=== PATIENT | male | born 1965 | race Caucasian/White ===

== ENCOUNTER 2024-04-03 17:05 | Outpatient (CLI) | payer OTHER, SELFPAY ==
--- OUTSIDE RECORDS SUMMARY | 2024-04-03 17:18 | XMS_ITS | CONTINUITY OF CARE DOCUMENT ---
Author Name juan carlos rangel Address Unknown Organization [facility] Address [address] [place] [address] Phone [phone] Care Team Providers Care Die Cleaner Name Role Phone Mega Vargas MD Unavailable AMMY ALBARADO MD Unavailable AMMY ALBARADO MD Unavailable [phone] VITAL SIGNS Date Observation Value Provider blood pressure, diastolic 80 mm[Hg] Be zacharyy Haider blood pressure, systolic 116 mm[Hg] Ara Maloney SOCIAL HISTORY Date Observation Value Provider smoking status never Joann Maloney FUNCTIONAL STATUS Date Observation Value Provider periodic limb movement index absent (0) Joann Maloney INSURANCE PROVIDERS Payer name Policy type / Coverage type Luis Eduardo red republican ID VERN[employer] PPO [employer] Other [id number]
[2024-04-03 17:38] LABS: Basophils Absolute Auto 0.1 K/mm3 (0.0-0.1); Basophils Percent Auto 0.7 % (0.2-1.2); Eosinophils Absolute Auto 0.1 K/mm3 (0-0.3); Eosinophils Percent Auto 0.6 % (0-4.4); Hematocrit 46.4 % (42.0-52.0); Hemoglobin 15.6 g/dL (14.0-18.0); Immature Granulocyte Absolute 0.09 K/mm3 (0.00-0.031); Immature Granulocyte Percent A 0.7 % (0-0.5); Lymphocytes Absolute Auto 2.52 K/mm3 (0.9-3.2); Lymphocytes Percent Auto 20.8 % (18.3-44.2); Mean Corpuscular HGB Conc 33.6 g/dl (32-36); Mean Corpuscular Hemoglobin 31.3 pg (26-34); Mean Platelet Volume 9.2 fl (7.4-10.4); Monocytes Absolute Auto 1.4 K/mm3 (0.1-0.6); Monocytes Percent Auto 11.6 % (2.6-8.5); Neutrophils Percent Auto 65.6 % (45.5-73.1); Platelet Count Result 267 k/mm3 (150-375); Red Blood Count 4.99 M/mm3 (4.6-6.20); White Blood Count 12.1 K/mm3 (4.5-10.0)
[2024-04-03 17:59] LABS: Alanine Aminotransferase 105 U/L (6-50); Albumin Level 4.3 g/dL (3.5-5.1); Alkaline Phosphatase 77 U/L (38-126); Anion Gap 9 mmol/L (4-12); Aspartate Amino Transferase 44 U/L (17-59); Bilirubin,Total 0.7 mg/dL (0.2-1.3); Blood Urea Nitrogen 14 mg/dL (9-20); Calcium 9.6 mg/dL (8.4-10.2); Carbon Dioxide 29 mmol/L (22-30); Chloride 100 mmol/L (98-107); Estimated Glomerular Filt Rate > 60; Glucose 130 mg/dL (65-110); Lipase 83 U/L (23-300); Potassium 4.6 mmol/L (3.4-5.0); Sodium 138 mmol/L (137-145)
== END 2024-04-03 17:06 | disposition home or self-care (01) ==
LOC: ANHLAB 17:16
PROVIDERS: PCP Internal Medicine; Visit Provider Internal Medicine
DX: R10.9 Unspecified abdominal pain (principal)
CPT/HCPCS: 36415; 80053; 83690; 85025

== ENCOUNTER 2024-04-04 08:19 | Outpatient (CLI) | payer OTHER, SELFPAY ==
--- NOTE | ~2024-04-04 | CT_ITS ---
EXAMINATION: CT abdomen pelvis w con DATE: 04/04/2024 08:49 INDICATION: Abdominal pain. TECHNIQUE: Computed tomography (CT) of the abdomen and pelvis was performed with 100 mL Omnipaque 350 intravenous contrast. Automated exposure control and iterative reconstruction technique were employe d. The dose-length product was 1168.79 mGy-cm. COMPARISON: None. FINDINGS: The visualized portions of lung bases demonstrate mild atelectasis. No pleural effusion. Th e heart size is normal. No pericardial effusion. The liver and spleen are normal. There are changes o f cholecystectomy. The pancreas and adrenal glands are normal. There are cysts in the kidneys measuri ng up to 11 mm on the left. The prostate is mildly enlarged. There is a left inguinal hernia containi ng fat. There is diverticulosis of the colon without evidence of diverticulitis. The appendix is norm al. There is stranding around fat in the anterior peritoneum deep to the umbilicus near the sigmoid c olon, consistent with fat necrosis. There are no pathologically enlarged lymph nodes. There is no destini e intraperitoneal fluid. There is mild thoracic and lumbar spondylosis. IMPRESSION: 1. Stranding around fat in the anterior peritoneum, consistent with fat necrosis. Reviewed, dictated and finalized at location [facility]. [facility] IMPRESSION: 1. Stranding around fat in the anterior peritoneum, consistent with fat necrosi s.
[2024-04-04 08:49] LABS: Estimated Glomerular Filt Rate > 60
--- OUTSIDE RECORDS SUMMARY | 2024-04-04 08:50 | XMS_ITS | Continuity of Care Document ---
Author Organization [place] [facility] [place] Address [address] [place] [address] Care Team Providers Care Process Manufacturing Engineer Name Role Phone AMMY POON Primary Care Provider Assessment Encounter Date Assessment Date Assessment LastModified by Organization Details LastModified Time 04/03/2024 04/03/[address] abdomen and pelvis as soon as possible Not available 04/03/2024 23:43:58 Plan of Treatment Reminders Order Date Submit Date Provider Last Modified By Organization Details Last Modified Time Details Appointments ANY 15 2024 02:15P M Ammy oPon MD Not available Not available Not available Lab CBC w/ auto diff 2024 025 [facility], [address], [place], [address], 04/04/2024 07:26:26 CMP, serum or plasma 2024 025 [facility], [address], [place], [address], 04/04/2024 08:42:41 lipase, serum or plasma 2024 025 [facility], [address], [place], [address], 04/03/2024 18:05:41 Referral None recorded. Procedures None recorded. Surgeries None recorded. Imaging CT, abdomen + pelvis, w/ contrast - Authoriza tion not requiredN o pre-certi fication is required for this order 2024 025 [facility] [address], [place], [address], 04/04/2024 09:49:26 Medication Orders None recorded. Patient TargetsNo targets recorded. Patient Instructions Encounter Date Encounter Id Patient Instructions Last Modified By Organization Details Last Modified Time 04/03/2024 [id number] A healthy lifestyle: care instructions Not available 04/03/2024 18:05:41 Reason for Referral None Reported. Problems Name Problem SNOMED Code Status Onset Date Resolution Date Notes Provider Name and Address Organization Details Recorded Time Essential hypertension 86724391 Active 2023 ANDREA [place], [place] - [facility] 16:39:34 Screening for malignant neoplasm of prostate Active 2023 Maira Sims MA null, [place] - [facility] 16:39:35 Anxiety 85269966 Active 2023 Ammy Poon MD Attn: Manish paez,[address] [place], [address], [place] - [facility] 4 18:05:19 Hyperlipidemi a 68738692 Active 2023 Ammy Poon MD Attn: Manish paez,[address] [place], [address], [place] [facility] 4 18:05:21 Peripheral venous insufficiency 48705220 Active 2023 Ammy Poon MD Attn: Manish paez,[address] [place], [address], [place] [facility] 4 18:05:22 Type 2 diabetes mellitus 36326112 Active 2024 Ammy Poon MD Attn: Manish paez,[address] [place], [address], [place] [facility] 5 22:52:19 SARS-CoV-2 vaccination declined 9579709571 Active 2024 Ammy Poon MD Attn: Manish paez,[address], [place], [address], [facility] - [facility] 22:53:30 Pneumococcal vaccination declined 508611526 Active 2024 Ammy Poon MD Attn: Manish paez,[address], [place], [address], [facility] - [facility] 22:53:31 Influenza vaccination declined 533468637 Active 2024 Ammy Poon MD Attn: Manish paez,[address], [place], [address], [facility] - [facility] 22:53:32 Abdominal pain 96595156 Active 2024 Maira Sims MA [facility], [place] - [facility] 17:29:58 Problem Notes None recorded. Procedures Surgical History Date Name Laterality Status Provider Name and Address Organization Details Recorded Time 02/22/19 07 Cholecystectomy completed Radha Mcneill MA [facility] 06/07/2023 16:15:56 Imaging Results None recorded. Procedure Notes None recorded. Medical Equipment None Reported. Allergies No known drug allergies Medications Name Sig Start Date Stop Date Status Note LastModified by Organization Details LastModified Time metformin 500 mg tablet TAKE 1 TABLET BY MOUTH EVERY DAY active Not Available Not Available No t Available atorvasta tin 10 mg tablet TAKE 1 TABLET BY MOUTH EVERY DAY active Not Available Not Available No t Available hydrocodo ne 5 mg-acetam inophen 325 mg tablet TAKE 1 TO 2 TABLETS BY MOUTH EVERY 6 HOURS NEEDED FOR PAIN active Not Available Not Available No t Available lisinopri l 20 mg tablet TAKE 1 TABLET BY MOUTH EVERY DAY 09/14 completed see pt case 07/12/23 Not Available Not Available Not Available Zithromax Z-Vladimir 250 mg tablet Take 1 dose pk by oral route as directed . 2023 active Not Available Not Available Not Avai lable alprazola m 0.5 mg tablet Take 1 tablet as needed by oral route. 06/18 completed Not Available Not Available Not Available lorazepam 0.5 mg tablet TAKE 1 TABLET BY MOUTH EVERY DAY NEEDED 10/20 completed changed to 1mg by Dr Poon at visit 10/21/23. Not Available Not Available Not Available lorazepam 1 mg tablet TAKE 1 TABLET BY MOUTH THREE TIMES DAILY active Not Available Not Available No t Available lisinopri l 40 mg tablet TAKE 1 TABLET BY MOUTH EVERY DAY active Not Available Not Available No t Available Vitals Date Recorded Body height Body mass index (BMI) Body weight Heart rate Oxygen saturation Oxygen saturation in Arterial blood by Pulse oximetry Systolic blood pressure Diastolic blood pressure Provider Name and Address Organization Details Last Updated DateTime 5 182.88 cm 34.9 kg/m2 500583. 04 g 105 /min 98 % 98 % 132 mm[Hg] 68 mm[Hg] Carlotta Bacon [place] [facility] 5 16:25:04 Social History Question Answer Notes LastModified by Organizat ion Details LastModified Time Tobacco Smoking Status Never Smoker Radha Mcneill MA [facility], [place] [facility] 06/07/2023 16:16:15 Do You Have An Advance Directive? No Information not available 10/21/2023 What Is Your Level Of Alcohol Consumption? Occasional Information not available 06/07/2023 Are You Blind Or Do You Have Difficulty Seeing? No Information not available 06/07/2023 What Is Your Level Of Caffeine Consumption? Occasional Information not available 10/21/2023 In The 14 Days Before Symptom Onset, Have You Had Close Contact With A Laboratory-confir med COVID-19 While That Case Was Ill? No Information not available 10/21/2023 In The 14 Days Before Symptom Onset, Have You Had Close Contact With A Person Who Is Under Investigation For COVID-19 While That Person Was Ill? No Information not available 10/21/2023 Have You Been To An Area Known To Be High Risk For COVID-19? No Information not available 10/21/2023 Are You Currently Employed? Yes Information not available 10/21/2023 Are You Deaf Or Do You Have Serious Difficulty Hearing? No Information not available 06/07/2023 What Type Of Diet Are You Following? 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 No Information not available 10/21/2023 What Was The Date Of Your Most Recent Tobacco Screening? 04/03/2024 Information not available 04/03/2024 What Is Your Relationship Status? Information not available 06/07/2023 Do You Use Your Seat Belt Or Car Seat Routinely? Yes Information not available 10/21/2023 Do You Have Smoke And Carbon Monoxide Detectors In Your Home? Yes Information not available 10/21/2023 Do You Feel Stressed (tense, Restless, Nervous, Or Anxious, Or Unable To Sleep At Night)? [id number] Information not available 06/07/2023 Do You Use Any Illicit Or Recreational Drugs? No Information not available 10/21/2023 Do You Use Sunscreen Routinely? Yes Information not available 10/21/2023 Has Tobacco Cessation Counseling Been Provided? No Information not available 10/21/2023 Do You Or Have You Ever Used Any Other Forms Of Tobacco Or Nicotine? No Information not available 10/21/2023 Sex: Male Functional Status Question Answer Note LastModified by Organization D etails LastModified Time Are you able to care for yourself? Yes Information n ot available 06/07/2023 What is your exercise level? None Information not available 10/21/2023 Mental Status None recorded. Family History Relationship Description Onset Age of this Age Resolved Age Notes LastModified by Organization Details LastModified Time Mother Hypertensive disorder [email or web address] Not available 2023 16:16:05 Notes:No new family history, me/rma Medical History Condition Response High Blood Pressure Y Past Encounters Encounter ID Performer Location Encounter Start Date Encounter Closed Date Diagnosis/Indication Diagnosis SNOMED-CT Code Diagnosis ICD10 Code Diagnosis Note [id number] [facility] - [place] [address] [place] [address] 04/03/2024 16:06:47 04/03/2024 17:38:10 Body mass index 30+ - obesity 705301537 Z68.34 Obesity 863155518 E66.9 Abdominal pain 48280108 R10.9 Health Concerns Section Related Observation LastModified by Organization Detai ls LastModified Time None Recorded Concern Status LastModified by Organization Details LastModified Time None Recorded Payers Encounter Date Sequence Insurance Name Policy Number Policy Martinez Covered Member ID Martinez Member ID Guarantor Name 04/03/2024 1 [employer] [id number] Donavon Lalajosegocharlie [id number] Saw Brandie Notes Date Note Type Note Provider Name and Address Organization Details Recorded Time 04/03/2024 text/html he has been having abdominal pain for a few days feels a knot right next to his umbilicus no clear-cut fever chills pain was moderate to severe maybe a little bit better today but it is not going away does not seem to radiate had a bowel movement last night passing some flatus today Ammy Poon MD Attn: [address] [place], [address], [place] - [facility] 04/03/2024 23:44:19
--- OUTSIDE RECORDS SUMMARY | 2024-04-04 08:50 | XMS_ITS | Data Portability ---
Author Organization [place] [facility], Main Office Address [address] [place] [address] Assessment Encounter Date Assessment Date Assessment LastModified by Organization Details LastModified Time 07/07/2022 07/07/2022 Continue current therapy exam unremarkable I have offered chest x-ray and switching his ASMITA-inhibitor but he thinks it might be allergies will wait 1 month and he will call back if his cough is not better with regards the abdominal pain and the exam is unremarkable he wants to monitor that as well obtain blood work see me in 4 months continue current therapy [email or web address] Not available 07/07/2022 17:38:14 Plan of Treatment Reminders Order Date Submit Date Provider Last Modified By Organization Details Last Modified Time Details Appointments None recorded . Lab PSA, total, serum or plasma 023 07/08/19 WHIT Ricardo, 2022 Marielos Carrion, [address], [place], [address], 3 11:18:19 CBC w/ auto diff 023 07/08/19 WHIT Ricardo, 2022 Marielos Carrion, [address], [place], [address], 3 10:32:08 TSH + free T4, serum 023 07/08/19 WHIT Ricardo, 2022 Marielos Carrion, [address], [place], [address], 3 11:18:18 T3, free, serum or plasma 023 07/08/19 WHIT Ricardo, 2022 Marielos Carrion, [address], [place], [address], 3 11:18:19 lipid panel, serum 023 07/08/19 MOMENCE [facility], 2022 Marielos Carrion, [address], [place], [address], 3 11:18:19 CMP, serum or plasma 023 07/08/19 23 MOMENCE [facility], 2022 Marielos Carrion, [address], [place], [address], 3 11:18:18 Referral None recorded . Procedures None recorded . Surgeries None recorded . Imaging None recorded . Medication Orders None recorded . Patient TargetsNo targets recorded. Patient InstructionsNo instructions recorded. Reason for Referral None Reported. Results Created Date Observation Date Name Description Value Unit Range Abnormal Flag Note LastModifiedBy Organization Detail LastModifiedTime 04/10/19 22 04/10/2021 PSA SCREE N PSA medicare screen 0.55 NG/mL 0.00-4 .00 Not Available [facility] (Lab) [address] [place], [address], 04/11/2021 00:08:43 04/10/19 22 04/10/2021 COMPR EHENS ALPHONSO METAB OLIC PANEL sodium 136 mmol/ L 137-14 5 low Not Available [facility] (Lab) [address] [place], [address], 04/10/2021 23:03:41 04/10/19 22 04/10/2021 COMPR EHENS ALPHONSO METAB OLIC PANEL potassium 4.5 mmol/ L 3.5-5. 1 Not Available [facility] (Lab) [address] [place], [address], 04/10/2021 23:03:41 04/10/19 22 04/10/2021 COMPR EHENS ALPHONSO METAB OLIC PANEL chloride 103 mmol/ L 98-107 Not Available [facility] (Lab) [address] [place], [address], 04/10/2021 23:03:41 04/10/19 22 04/10/2021 COMPR EHENS ALPHONSO METAB OLIC PANEL carbon dioxide 31 mmol/ L 22-30 high Not Available [facility] (Lab) [address] [place], [address], 04/10/2021 23:03:41 04/10/19 22 04/10/2021 COMPR EHENS ALPHONSO METAB OLIC PANEL agap 6.5 mmol/ L 14-22 low Not Available [facility] (Lab) [address] [place], [address], 04/10/2021 23:03:41 04/10/19 22 04/10/2021 COMPR EHENS ALPHONSO METAB OLIC PANEL glucose 134 mg/dL 70-99 high Not Available [facility] (Lab) [address] [place], [address], 04/10/2021 23:03:41 04/10/19 22 04/10/2021 COMPR EHENS ALPHONSO METAB OLIC PANEL BUN 19 mg/dL 8-19 Not Available [facility] (Lab) [address] [place], [address], 04/10/2021 23:03:41 04/10/19 22 04/10/2021 COMPR EHENS ALPHONSO METAB OLIC PANEL creatinine 0.95 mg/dL 0.66-1 .25 Not Available [facility] (Lab) [address] [place], [address], 04/10/2021 23:03:41 04/10/19 22 04/10/2021 COMPR EHENS ALPHONSO METAB OLIC PANEL GFR >60 Refer ence Range : [place] ge GFR Healt hy Adult : >60 mL/mi n/1.7 3 m2 Chron ic Kidne y Disea se: 15-60 mL/mi n/1.7 3 m2 Kidne y Failu re: <15/m L/min /1.73 m2 www.n iddk. nih.g ov The MDRD study equat ion has not been valid ated in child chong <18 years of age; pregn ant women ; the elder ly >85 years of age; or in some racia l or ethni c subgr oups, such as Hisdequan nics. Outsi de the valid ated azael eters , estim ated GFR is less accur ate, requi ring clini matthew judgm ent on a case- by-ca se basis . Clini matthew inter preta tion for other races and ages must be made by the clini genoveva. The MDRD study equat ion has not been valid ated for the evalu ation of serum creat inine relat ed to nutri srikanth l statu s or medic ation usage . For perso ns <18 years of age, a pedia tric GFR calcu lator is avail able on the [facility] websi te: https ://fabián w.hoang esposito.o rg/pr ofess ional s/kdo qi/gf r_cal culat or Not Available [facility] (Lab) [address] [place], [address], 04/10/2021 23:03:41 04/10/19 22 04/10/2021 COMPR EHENS ALPHONSO METAB OLIC PANEL alkaline phosphatase 69 U/L 38-126 Not Available [facility] (Lab) [address] [place], [address], 04/10/2021 23:03:41 04/10/19 22 04/10/2021 COMPR EHENS ALPHONSO METAB OLIC PANEL alanine aminotransfe rase 26 U/L 0-50 Not Available [facility] (Lab) [address] [place], [address], 04/10/2021 23:03:41 04/10/19 22 04/10/2021 COMPR EHENS ALPHONSO METAB OLIC PANEL aspartate aminotransfe rase 23 U/L 15-46 Not Available [facility] (Lab) [address] [place], [address], 04/10/2021 23:03:41 04/10/19 22 04/10/2021 COMPR EHENS ALPHONSO METAB OLIC PANEL bilirubin, total 0.30 mg/dL 0.20-1 .30 Not Available [facility] (Lab) [address] [place], [address], 04/10/2021 23:03:41 04/10/19 22 04/10/2021 COMPR EHENS ALPHONSO METAB OLIC PANEL calcium 9.2 mg/dL 8.4-10 .2 Not Available [facility] (Lab) [address] [place], [address], 04/10/2021 23:03:41 04/10/19 22 04/10/2021 COMPR EHENS ALPHONSO METAB OLIC PANEL total protein 6.5 g/dL 6.3-8. 2 Not Available [facility] (Lab) [address] [place], [address], 04/10/2021 23:03:41 04/10/19 22 04/10/2021 COMPR EHENS ALPHONSO METAB OLIC PANEL albumin 3.9 g/dL 3.4-5. 0 Not Available [facility] (Lab) [address] [place], [address], 04/10/2021 23:03:41 04/10/19 22 04/10/2021 COMPR EHENS ALPHONSO METAB OLIC PANEL globulin 2.6 g/dL 2.6-4. 2 Not Available [facility] (Lab) [address] [facility] [place], [address], 04/10/2021 23:03:41 04/10/19 22 04/10/2021 COMPR EHENS ALPHONSO METAB OLIC PANEL A/G ratio 1.5 ratio 1.0-2. 0 Not Available [facility] (Lab) [address] [place], [address], 04/10/2021 23:03:41 04/10/19 22 04/10/2021 LIPID PANEL cholesterol 188 mg/dL 140-19 9 NIH MARINA NSUS RECOM MENDA TION FOR MECHE STERO L: ADULT CHILD LOW RISK: <200 <170 BORDE RLINE : <200- 239 ----- HIGH RISK: >240 >200 Not Available [facility] (Lab) [address] [place], [address], 04/10/2021 23:03:35 04/10/19 22 04/10/2021 LIPID PANEL triglyceride s 77 mg/dL 0-150 NIH MARINA NSUS REPOR T RECOM MENDA TION FOR TRIGL YCERI MARIIA: ADULT CHILD LOW RISK: <150 ----- BODER LINE: 150-1 99 ----- HIGH RISK: >200 ----- Not Available [facility] (Lab) [address] [place], [address], 04/10/2021 23:03:35 04/10/19 22 04/10/2021 LIPID PANEL HDL cholesterol 55 mg/dL 40- Not Available [facility] (Lab) [address] [place], [address], 04/10/2021 23:03:35 04/10/19 22 04/10/2021 LIPID PANEL LDL cholesterol, calculated 118 mg/dL 0-130 NIH MARINA NSUS REPOR T RECOM MENDA TIONS FOR LDL: ADULT CHILD LOW RISK <130 <110 (OPTI MAL LDL) <100 ----- BORDE RLINE : 130-1 59 ----- HIGH RISK: >160 >130 A TRIGL YCERI DE RESUL T >400 INVAL IDATE S THE CALCU LATIO N FOR LDL FRACT IONAT ION - THE LDL RESUL T WILL NOT BE REPOR FRANCINE. Not Available [facility] (Lab) [address] [place], [address], 04/10/2021 23:03:35 04/10/19 22 04/10/2021 CBC/C OMPLE TE BLD COUNT W/DIF F white blood cells 9.1 x10'3 /uL 4.2-10 .8 Not Available [facility] (Lab) [address] [place], [address], 04/10/2021 22:36:11 04/10/19 22 04/10/2021 CBC/C OMPLE TE BLD COUNT W/DIF F red blood cells 4.88 x10'6 /uL 4.10-5 .80 Not Available [facility] (Lab) [address] [place], [address], 04/10/2021 22:36:11 04/10/19 22 04/10/2021 CBC/C OMPLE TE BLD COUNT W/DIF F hemoglobin 14.6 g/dL 13.2-1 7.0 Not Available [facility] (Lab) [address] [place], [address], 04/10/2021 22:36:11 04/10/19 22 04/10/2021 CBC/C OMPLE TE BLD COUNT W/DIF F hematocrit 44.8 % 39.3-5 0.0 Not Available [facility] (Lab) [address] [facility] [place], [address], 04/10/2021 22:36:11 04/10/19 22 04/10/2021 CBC/C OMPLE TE BLD COUNT W/DIF F mean red cell volume 91.8 fL 80.0-9 7.0 Not Available [facility] (Lab) [address] [place], [address], 04/10/2021 22:36:11 04/10/19 22 04/10/2021 CBC/C OMPLE TE BLD COUNT W/DIF F mean red cell hemoglobin 29.9 pg 27.0-3 3.0 Not Available [facility] (Lab) [address] [place], [address], 04/10/2021 22:36:11 04/10/19 22 04/10/2021 CBC/C OMPLE TE BLD COUNT W/DIF F mean RBC HGB concentratio n 32.6 g/dL 31.0-3 6.0 Not Available [facility] (Lab) [address] [place], [address], 04/10/2021 22:36:11 04/10/19 22 04/10/2021 CBC/C OMPLE TE BLD COUNT W/DIF F red cell distribution width 13.5 % 11.8-1 5.5 Not Available [facility] (Lab) [address] [place], [address], 04/10/2021 22:36:11 04/10/19 22 04/10/2021 CBC/C OMPLE TE BLD COUNT W/DIF F platelets 234 x10'3 /uL 150-40 0 Not Available [facility] (Lab) [address] [place], [address], 04/10/2021 22:36:11 04/10/19 22 04/10/2021 CBC/C OMPLE TE BLD COUNT W/DIF F mean platelet volume 9.9 fL 9.0-12 .4 Not Available [facility] (Lab) [address] [place], [address], 04/10/2021 22:36:11 04/10/19 22 04/10/2021 CBC/C OMPLE TE BLD COUNT W/DIF F neutrophils 53.6 % 39.0-7 2.0 Not Available [facility] (Lab) [address] [place], [address], 04/10/2021 22:36:11 04/10/19 22 04/10/2021 CBC/C OMPLE TE BLD COUNT W/DIF F lymphocytes 31.0 % 16.0-4 7.0 Not Available [facility] (Lab) [address] [place], [address], 04/10/2021 22:36:11 04/10/19 22 04/10/2021 CBC/C OMPLE TE BLD COUNT W/DIF F monocytes 11.2 % 5.0-12 .0 Not Available [facility] (Lab) [address] [place], [address], 04/10/2021 22:36:11 04/10/19 22 04/10/2021 CBC/C OMPLE TE BLD COUNT W/DIF F eosinophils 2.5 % 1.0-7. 0 Not Available [facility] (Lab) [address] [place], [address], 04/10/2021 22:36:11 04/10/19 22 04/10/2021 CBC/C OMPLE TE BLD COUNT W/DIF F basophils 1.0 % 0.0-2. 0 Not Available [facility] (Lab) [address] [place], [address], 04/10/2021 22:36:11 04/10/19 22 04/10/2021 CBC/C OMPLE TE BLD COUNT W/DIF F immature granulocytes 0.7 % 0.00-0 .50 high Not Available [facility] (Lab) [address] [place], [address], 04/10/2021 22:36:11 04/10/19 22 04/10/2021 CBC/C OMPLE TE BLD COUNT W/DIF F neutrophils, absolute count 4.85 x10'3 /uL 1.5-8. 0 Not Available [facility] (Lab) [address] [place], [address], 04/10/2021 22:36:11 04/10/19 22 04/10/2021 CBC/C OMPLE TE BLD COUNT W/DIF F lymphocytes, absolute count 2.81 x10'3 /uL 1.07-3 .43 Not Available [facility] (Lab) [address] [place], [address], 04/10/2021 22:36:11 04/10/19 22 04/10/2021 CBC/C OMPLE TE BLD COUNT W/DIF F monocytes, absolute count 1.01 x10'3 /uL 0.29-0 .99 high Not Available [facility] (Lab) [address] [place], [address], 04/10/2021 22:36:11 04/10/19 22 04/10/2021 CBC/C OMPLE TE BLD COUNT W/DIF F eosinophils, absolute count 0.23 x10'3 /uL 0.02-0 .53 Not Available [facility] (Lab) [address] [place], [address], 04/10/2021 22:36:11 04/10/19 22 04/10/2021 CBC/C OMPLE TE BLD COUNT W/DIF F basophils, absolute count 0.09 x10'3 /uL 0.01-0 .08 high Not Available [facility] (Lab) [address] [place], [address], 04/10/2021 22:36:11 04/10/19 22 04/10/2021 CBC/C OMPLE TE BLD COUNT W/DIF F immature granulocytes ,absolute 0.06 x10'3 /uL 0.00-0 .05 high Not Available [facility] (Lab) [address] [place], [address], 04/10/2021 22:36:11 04/10/19 22 04/10/2021 CBC/C OMPLE TE BLD COUNT W/DIF F nucleated red blood cells 0.0 % -0 Not Available [facility] (Lab) [address] [place], [address], 04/10/2021 22:36:11 04/10/19 22 04/10/2021 CBC/C OMPLE TE BLD COUNT W/DIF F NRBC# 0.00 x10'3 /uL Not Available [facility] (Lab) [address] [place], [address], 04/10/2021 22:36:11 Result Notes None recorded. Problems Name Problem SNOMED Code Status Onset Date Resolution Date Notes Provider Name and Address Organization Details Recorded Time Celluliti s of right ankle 76022874437 227504 Completed 202010/31/2020 Not Available [facility] 3 14:47:48 Open wound of right ankle 77171433920 978027 Active 2020 Not Available [facility] 3 14:47:48 Open wound of right lower leg 68788868254 203740 Active 2020 Not Available [facility] 3 14:47:48 Benign essential hypertens ion 1444120 Active Not Available [facility] 3 14:47:48 Anxiety state 083093522 Active Not Available [facility] 3 14:47:48 Pain in scrotum Completed Not Available [facility] 3 14:47:49 Venous insuffici ency of leg 717926516 Active 2021 Not Available [facility] 3 14:47:49 Screening for malignant neoplasm of prostate Active 2021 Not Available [facility] 3 14:47:49 Hyperlipi demia 19059429 Active 2017 Not Available [facility] 3 14:47:49 Sebaceous cyst of skin 177919225 Active 2021 Not Available [facility] 3 14:47:49 Upper respirato ry infection 08390087 Active 2022 RANJITH Cavazos, [facility] [employer] [facility] 3 17:20:25 Cough 68461165 Active 2022 RANJITH Cavazos, [facility] 3 17:20:50 Problem Notes None recorded. Procedures Surgical History Date Name Laterality Status Provider Name and Address Organization Details Recorded Time 08/19/19 Colonoscopy completed Not Available [facility] 04/23/19 14:44:56 Cholecystectomy completed Not Available [facility] 04/22/2022 14:44:56 Imaging Results None recorded. Procedure Notes None recorded. Medical Equipment None Reported. Allergies No known drug allergies Medications Name Sig Start Date Stop Date Status Note LastModified by Organization Details LastModified Time amoxicill in 500 mg capsule Take 1 capsule every 8 hours by oral route for 7 days. active Not Available Not Available No t Available clindamyc in HCl 300 mg capsule Take 1 capsule 3 times a day by oral route for 7 days. 07/07 completed Not Available Not Available Not Available azithromy leonard 250 mg tablet TAKE 2 TABLETS BY MOUTH FOR 1 DAY THEN TAKE 1 TABLET BY MOUTH DAILY FOR 4 DAYS active Not Available Not Available No t Available tizanidin e 4 mg tablet Take 1 tablet every day by oral route at bedtime. active Not Available Not Available No t Available hydrocodo ne 5 mg-acetam inophen 325 mg tablet TAKE 1 TO 2 TABLETS BY MOUTH EVERY 6 HOURS NEEDED FOR PAIN 07/07 completed Not Available Not Available Not Available lisinopri l 20 mg tablet TAKE 1 TABLET BY MOUTH DAILY 2022 active Not Available Not Available Not Avai lable penicilli n V potassium 500 mg tablet TK 1 T PO Q 6 H TAT 05/19 completed Not Available Not Available Not Available phentermi ne 37.5 mg tablet Take 1 tablet every day by oral route. 09/19 completed pt never started Not Available Not Available Not Available ciproflox acin 500 mg tablet 01/02 completed Not Available Not Available Not Available aspirin 81 mg tablet,de layed release Take 1 tablet every day by oral route. 09/12 completed Not Available Not Available Not Available alprazola m 0.5 mg tablet TK 1 T PO D 01/03 completed changed to Lorazepa m Not Available Not Available Not Available cephalexi n 500 mg capsule 01/02 completed Not Available Not Available Not Available ranitidin e 150 mg tablet Take 1 tablet every day by oral route. 08/23 completed Not Available Not Available Not Available lisinopri l 10 mg tablet TAKE 1 TABLET BY MOUTH EVERY DAY 08/07 completed Not Available Not Available Not Available omeprazol e 20 mg capsule,d elayed release Take 1 capsule every day by oral route. 2020 active Not Available Not Available Not Avai lable hydrocodo ne 5 mg-acetam inophen 500 mg tablet TK ONE T PO Q 6 H PRN P 09/12 completed Not Available Not Available Not Available lorazepam 1 mg tablet Take 0.5 tablets every day by oral route. active Not Available Not Available No t Available levofloxa leonard 500 mg tablet TK 1 T PO QD FOR 10 DAYS 02/24 completed Not Available Not Available Not Available doxycycli ne hyclate 100 mg tablet 01/02 completed Not Available Not Available Not Available diazepam 5 mg tablet TK 1 T PO 1 HOUR BEFORE APPOINTM ENT 04/11 completed Not Available Not Available Not Available famotidin e OTC QD 01/02 completed Not Available Not Available Not Available Suprep Bowel Prep Kit 17.5 gram-3.13 gram-1.6 gram oral solution TK UTD 09/15 completed Not Available Not Available Not Available Vitals Date Recorded Body mass index (BMI) Body mass index (BMI) Body mass index (BMI) Body height Body height Body height Body height Oxygen saturation Oxygen saturation in Arterial blood by Pulse oximetry Heart rate Heart rate Heart rate Heart rate Respiratory rate Body temperature Body temperature Body temperature Body weight Body weight Body weight Systolic blood pressure Diastolic blood pressure Systolic blood pressure Diastolic blood pressure Systolic blood pressure Diastolic blood pressure Systolic blood pressure Diastolic blood pressure Provider Name and Address Organization Details Last Updated DateTime 3 36.4 kg/m2 36.8 kg/m2 36.9 kg/m2 185.42 cm 185.42 cm 185.42 cm 185.42 cm 97 % 97 % 76 /min 72 /min 78 /min 72 /min 18 /min 97.7 [degF] 97.7 [degF] 96.1 [degF] 213856. 49 g 124089. 27 g 365155. 86 g 141 mm[Hg] 80 mm[Hg] 130 mm[Hg] 74 mm[Hg] 118 mm[Hg] 68 mm[Hg] 120 mm[Hg] 70 mm[Hg] Not Available [facility] 3 14:46:34 Date Recorded Body height Body mass index (BMI) Body weight Body temperature Heart rate Oxygen saturation Oxygen saturation in Arterial blood by Pulse oximetry Systolic blood pressure Diastolic blood pressure Provider Name and Address Organization Details Last Updated DateTime 3 185.42 cm 35.6 kg/m2 852312. 94 g 98 [degF] 74 /min 98 % 98 % 124 mm[Hg] 78 mm[Hg] Michelle Lam RN [facility] 15:40:22 Social History Question Answer Notes LastModified by Organization Details LastModified Time Tobacco Smoking Status Never Smoker MARISSA Gaona null, [facility] [address] 07/07/2022 15:28:00 Do You Have An Advance Directive? No [id number] Information not available 04/22/2022 What Is Your Level Of Alcohol Consumption? Moderate [id number] Information not available 04/22/2022 Do You Wear A Helmet When Biking? Yes Information not available 07/07/2022 Are You Blind Or Do You Have Difficulty Seeing? No Information not available 07/07/2022 What Is Your Level Of Caffeine Consumption? Occasional [id number] Information not available 04/22/2022 How Much Tobacco Do You Chew? None [id number] Information not available 04/22/2022 In The 14 Days Before Symptom Onset, Have You Had Close Contact With A Laboratory-confi rmed COVID-19 While That Case Was Ill? No Information not available 07/07/2022 In The 14 Days Before Symptom Onset, Have You Had Close Contact With A Person Who Is Under Investigation For COVID-19 While That Person Was Ill? No Information not available 07/07/2022 Are You Currently Employed? Yes [email or web address] Information not available 07/07/2022 Are You Deaf Or Do You Have Serious Difficulty Hearing? No Information not available 07/07/2022 What Type Of Diet Are You Following? REGULAR [id number] Information not available 04/22/2022 Which Illicit Or Recreational Drugs Have You Used? None Information not available 07/07/2022 Do You Or Have You Ever Used E-cigarettes Or Vape? Never Used Electronic Cigarettes Information not available 07/07/2022 What Is The Highest Grade Or Level Of School You Have Completed Or The Highest Degree You Have Received? 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 No Information not available 07/07/2022 What Is The Fluoride Status Of Your Home? Unknown Information not available 07/07/2022 Do You Use Insect Repellent Routinely? No Information not available 07/07/2022 Where Do You Live? [facility] Information not available 07/07/2022 Do You Have A Medical Power Of Plate Stacker Hand? No Information not available 07/07/2022 What Was The Date Of Your Most Recent Tobacco Screening? 07/07/2022 Information not available 07/07/2022 Have You Ever Been Counseled For Unhealthy Alcohol Use? No Information not available 07/07/2022 Do You Have Any Pets? Yes Information not available 07/07/2022 What Is Your Relationship Status? [id number] Information not available 04/22/2022 Do You Use Your Seat Belt Or Car Seat Routinely? Yes Information not available 07/07/2022 Do You Have Smoke And Carbon Monoxide Detectors In Your Home? Yes Information not available 07/07/2022 Are You Passively Exposed To Smoke? No Information not available 07/07/2022 Do You Or Have You Ever Used Smokeless Tobacco? Never Used Smokeless Tobacco [id number] Information not available 04/22/2022 Are There Any Smokers In Your House? No Information not available 07/07/2022 How Much Tobacco Do You Smoke? No [id number] Information not available 04/22/2022 What Types Of Sporting Activities Do You Participate In? None Information not available 07/07/2022 Do You Feel Stressed (tense, Restless, Nervous, Or Anxious, Or Unable To Sleep At Night)? [id number] Information not available 07/07/2022 Do You Use Any Illicit Or Recreational Drugs? No Information not available 07/07/2022 Do You Use Sunscreen Routinely? No Information not available 07/07/2022 Has Tobacco Cessation Counseling Been Provided? No Not Needed-ne francoise Smoked Information not available 07/07/2022 How Many Years Have You Smoked Tobacco? 0 Information not available 07/07/2022 Have You Recently Traveled Abroad? No Information not available 07/07/2022 Do You Have Any Dietary Restrictions? No Information not available 07/07/2022 Do You Or Have You Ever Used Any Other Forms Of Tobacco Or Nicotine? No Information not available 07/07/2022 Sex: Male Functional Status Question Answer Note LastModified by Organizat ion Details LastModified Time Do you have difficulty walking or climbing stairs? No Information not available 07/07/2022 Do you have transportation difficulties? No Information not available 07/07/2022 Are you able to walk? YESWOREST Information not available 07/07/2022 Do you have difficulty doing errands alone? No Information not available 07/07/2022 Are you able to care for yourself? Yes Information n ot available 07/07/2022 Do you have difficulty dressing or bathing? No Information not available 07/07/2022 What is your exercise level? Occasional [id number] Information not available 04/22/2022 Mental Status Question Answer Note LastModified by Organization D etails LastModified Time Do you have difficulty concentrating, remembering or making decisions? No Information no t available 07/07/2022 Family History Relationship Description Onset Age of this Age Resolved Age Notes LastModified by Organization Details LastModified Time Mother Hypertensive disorder [id number] Not available 04/22/2022 14:44:58 Mother Anxiety disorder [id number] Not available 04/22/2022 14:44:58 Mother Lichen sclerosus et atrophicus cyahl Not available 07/07 15:27:59 Father Malignant tumor of lung cyahl Not available 2022 15:27:59 Father Osteoporosis cyahl Not availab le 07/07/2022 15:27:59 Father Benign prostatic hyperplasia cyahl Not available 06/22 15:27:59 Father Hypertensive disorder [id number] Not available 04/22/2022 14:44:58 Medical History Condition Response BLINDNESS N NERVE DISEASE N RHEUMATIC FEVER N BLADDER PROBLEMS N KIDNEY STONES N MRSA N OTHER # 1 N POLIO N LUNG DISEASE/DISORDER N RADIATION / CHEMOTHERAPY N COPD N Other # 2 N BLOOD DISEASES N EAR OR HEARING PROBLEMS N MUMPS N BOWEL PROBLEMS N DEPRESSION (INCLUDING POST ) N STROKE/TIA N ULCERS N BENIGN PROSTATIC HYPERPLASIA N MEASLES N MYOCARDIAL INFARCTION N OBESITY N GERD/NAUSEA N ANEURYSM N URINARY/BLADDER/KIDNEY PROBLEMS N CORONARY ARTERY DISEASE (CAD) N ADDICTION CONCERNS N ENDOMETRIOSIS N Impotence N USE OF BLOOD THINNERS N SKIN PROBLEMS N GASTROINTESTINAL DISORDER N PERIPHERAL VASCULAR DISEASE N MUSCLE,JOINT OR BONE PROBLEMS N GASTROINTESTINAL BLEEDING N BLOOD CLOTS N ASTHMA N CATARACTS N ERECTILE DYSFUNCTION N VARICOSITIES N GI PROBLEMS N Low Testosterone N INFERTILITY N AIDS/HIV N CHEMOTHERAPY / RADIATION N LIVER DISEASE N MALE HYPOGONADISM N HYPERTENSION Y Deficiency N TOURETTE'S N ANXIETY DISORDER Y BLOOD TRANSFUSION N ANEMIA/BLOOD DISORDER N CHRONIC EAR INFECTIONS N BRONCHITIS N TUBERCULOSIS N GLAUCOMA N FOOT PROBLEM N DIVERTICULITIS N SLEEP APNEA N CHICKENPOX N INFECTIOUS DISEASE N HEART ARRHYTHMIA N PROSTATE N INSOMNIA N HIGH CHOLESTEROL / HYPERLIPIDEMIA Y HYPERTHYROIDISM N EYE PROBLEMS N EDEMA N CHRONIC PAIN SYNDROME N HYPOTHYROIDISM N CAROTID BLOCKAGE N CONSTIPATION N BACK / NECK PROBLEMS N HAVE YOU BEEN HOSPITALIZED OR SEEN IN [facility] IN THE PAST YEAR ? N ATHEROSCLEROSIS N BREAST PROBLEMS N DIALYSIS N ECZEMA N OSTEOPOROSIS N ARTHRITIS N NO SIGNIFICANT PAST MEDICAL HISTORY N APPENDICITIS N DIABETES, TYPE N BAD TEETH N ENT N HEARTBURN / REFLUX N AUTISM SPECTRUM DISORDER (ASD) N HEPATITIS / LIVER DISEASE N GOUT N SLEEP DISORDER N ALZHEIMER'S DISEASE N Brain Problems N HERPES N DEMENTIA N HEADACHES/MIGRAINES N SEIZURES/EPILEPSY N VASCULAR DISEASE N PACEMAKER N Blood Disorder N DIZZINESS N HEART DISEASE/HEART PROBLEMS N KIDNEY DISEASE N MULTIPLE SCLEROSIS N CARDIAC ARRHYTHMIA N CANCER: SPECIFY N ATRIAL FIBRILLATION N Gall Stones N PULMONARY EMBOLISM N AUTOIMMUNE DISEASE N Past Encounters Encounter ID Performer Location Encounter Start Date Encounter Closed Date Diagnosis/Indication Diagnosis SNOMED-CT Code Diagnosis ICD10 Code Diagnosis Note [id number] [facility] [address] [place] [address] 06/20/2020 00:00:00 06/22/2020 13:07:14 [id number] [facility] [address] [place] [address] 09/19/2020 00:00:00 09/19/2020 21:45:11 [id number] [facility] [address] [place] [address] 10/10/2020 00:00:00 10/10/2020 11:15:37 [id number] [facility] [address] [place] [address] 10/17/2020 00:00:00 10/17/2020 12:49:44 [id number] [facility] [address] [place] [address] 10/24/2020 00:00:00 10/24/2020 12:48:12 [id number] [facility] [address] [place] [address] 10/31/2020 00:00:00 10/31/2020 12:46:11 [id number] [facility] [address] [place] [address] 11/07/2020 00:00:00 11/08/2020 09:29:55 [id number] [facility] [address] [place] [address] 11/14/2020 00:00:00 11/14/2020 12:36:00 [id number] [facility] [address] [place] [address] 11/21/2020 00:00:00 11/21/2020 12:26:59 [id number] [facility] [address] [place] [address] 11/28/2020 00:00:00 11/28/2020 12:39:58 [id number] [facility] escal[facility] [address] [place] [address] 01/02/2021 00:00:00 01/04/2021 12:17:04 [id number] [facility] [address] [place] [address] 01/30/2021 00:00:00 01/30/2021 12:57:59 [id number] [facility] [address] [place] [address] 02/06/2021 00:00:00 02/06/2021 12:30:29 [id number] [facility] Internal Med [place] [address] [place] [address] y , [place] [address] 03/18/2021 00:00:00 03/18/2021 21:32:15 [id number] [facility] Internal Med [place] [address] [place] [address] y , [place] [address] 04/10/2021 00:00:00 04/10/2021 22:09:11 [id number] [facility] Internal Med [place] [address] [place] [address] y , [place] [address] 08/07/2021 00:00:00 08/07/2021 22:25:58 [id number] Tonny Poon MD [facility] [address] [place] [address] y , [place] [address] 07/07/2022 15:25:44 07/07/2022 17:20:14 Hyperlipidemia 06568353 E78.5 Benign ess ential hypertension 9827449 I10 Screening for malignant neoplasm of prostate 847266366 Z12.5 Venous ins ufficiency of leg 369891244 I87.2 Health Concerns Section Related Observation LastModified by Organization Detai ls LastModified Time None Recorded Concern Status LastModified by Organization Details LastModified Time None Recorded Advance Directives Directive N: Payers Encounter Date Sequence Insurance Name Policy Number Policy Martinez Covered Member ID Martinez Member ID Guarantor Name 07/07/2022 1 [facility] [id number] Donavon Lalaarigofouzia os [id number] Donavon Krishnangocharlie Notes Date Note Type Note Provider Name and Address Organization Details Recorded Time 07/07/2022 text/html Hyperlipidemia n eeds blood work tries to follow a low-fat diet. Hypertension no headache no dizziness. Occasionally some dry cough over the last month. He has had 1-2 episodes of some left upper quadrant pain is been very short-lived no melena nausea vomiting change in bowel habits or weight loss Tonny Poon MD [address] [facility] [address], [place], [address], [facility] 07/07/2022 17:40:50
--- OUTSIDE RECORDS SUMMARY | 2024-04-04 08:50 | XMS_ITS | CONTINUITY OF CARE DOCUMENT ---
Author Name juan carlos rangel Address Unknown Organization [facility] Address [address] [facility] [address] [place] [address] Phone [phone] Care Team Providers Care Towel Hemmer Name Role Phone Mega Vargas MD Unavailable [phone] AMMY ALBARADO MD Unavailable AMMY ALBARADO MD Unavailable VITAL SIGNS Date Observation Value Provider blood pressure, diastolic 80 mm[Hg] Be zacharyy Haider blood pressure, systolic 116 mm[Hg] Ara Maloney SOCIAL HISTORY Date Observation Value Provider smoking status never Joann Maloney FUNCTIONAL STATUS Date Observation Value Provider periodic limb movement index absent (0) Joann Maloney INSURANCE PROVIDERS Payer name Policy type / Coverage type Luis Eduardo red green party ID [id number] Other [id number]
== END 2024-04-04 08:20 | disposition home or self-care (01) ==
LOC: ANHIMG 08:22
PROVIDERS: PCP Internal Medicine; Visit Provider Internal Medicine
DX: R10.9 Unspecified abdominal pain (principal)
CPT/HCPCS: 74177; Q9967